=== PATIENT | female | born 1995 | race Caucasian/White ===

== ENCOUNTER 2021-08-19 07:00 | Inpatient (IN) ==
[2021-08-19] MEDS ORDERED: OXYTOCIN 30 UNITS/500 ML BAG IV PRN ×3 (07:31→14:28)
[2021-08-19] MEDS ORDERED: PENICILLIN G POTASSIUM 6 MU in DEXTROSE 5% 250 ML IV STA (07:31)
[2021-08-19] MEDS: LACTATED RINGER'S 1,000 ML IV PRN ×2 (07:37→09:02)
--- NOTE | 2021-08-19 07:38 | History & Physical Report ---
Date of Service August 19, 2021 Assessment & Plan (1) Active labor: Plan: 25 y/o at 40 4/7 wga presents in labor VSS Fetus cat 1 Labor - expectant management GBS+, pcn ordered desires epidural History of Present Illness Chief Complaint: contractions Primary Care Provider: NO PCP 25 y/o at 40 4/7 wga presents w/ ctx increasing in frequency and intensity w/ bloody show. +FM; denies LOF PNI: GBS+ Hx LGA Past [employer] Hx: G1 2014 at 40 wks G2 current q28-30d denies hx STIs 12/2020 neg cyto, denies hx abnl Allergies Allergy/AdvReac Type Severity Reaction Status Date / Time No Known Allergies Allergy Verified 08/19/21 07:37 Patient History Medical History No significant past medical history Surgical History H/O wisdom tooth extraction Family History Grandfather (Maternal) Myocardial infarction Grandfather (Paternal) Lung cancer Gestational diabetes Mother Thyroid disease Denies family history of Ovarian cancer Prostate cancer Breast cancer Colorectal cancer Social History Smoking Status: Never smoker Smoking End Date: positive preg test; Second Hand Exposure: No; Tobacco Cessation Education Requested by Patient: No Hx Alcohol Use: No Hx Substance Use: No Preferred Language: Hebrew Communication Ability: Effective Visual Impairment: No Limitations Hearing Ability: Normal Medical Cost Consultant Required: No Beliefs That Will Affect Care: None marital status: Single marital status details: Harvinder Barrientos (35) [phone] Current Living Situation: Family Current Living Situation Comment: lives with FOB and child. 2 dogs current occupational status: unemployed current occupation: Homemaker Other Information That Helps Us Care for You: No Feels Safe at Home: Yes Safety Concerns: Feels Safe At This Time Assistive Devices: None Physical Exam Genitourinary: Manual OB Exam: + cervical dilation 6 cm, + cervical effacement 70% and + station -2 OB Exam Monitor Tracing: + external FHT monitor used, + external uterine monitor used (3-6) and + category I (140/mod/+accel/-decel) bulging bag Results & Data ([facility]) Vital Signs (Past 12 Hours) Vital Signs Temp Pulse Resp BP 08/19/21 07:10 98.6 F 75 20 122/70 08/19/21 07:09 75 122/70 Laboratory Results OB Labs: Blood Type A Positive 01/10/21 Antibody Screen NEGATIVE 01/10/21 Hemoglobin 11.0 g/dL (12.0-16.0) L 05/26/21 Hematocrit 33.3 % (37-47) L 05/26/21 Mean Corpuscular Volume 90.5 fL (80-100) 01/10/21 Platelet Count 232 K/uL (130-400) 01/10/21 Rubella IgG Antibody Immune (Immune) 01/10/21 Rapid Plasma Reagin Nonreactive (Nonreactive) 01/10/21 Hepatitis B Surface Antigen Neg (Neg) 01/10/21 HIV (1&2) Ab and P24 Ag, 4th Gener Neg (Neg) 01/10/21 Glucose 1 Hour 50 gm Load 100 mg/dl (70-130) 05/26/21 OB Optional Labs: Chlamydia trachomatis RNA NOT DETECTED (NOT DETECTED) 01/10/21 Neisseria gonorrhoeae RNA NOT DETECTED (NOT DETECTED) 01/10/21 Labs Reviewed: Normal Quad screen Coding Level of Care Code None Diagnoses Active labor
[2021-08-19] MEDS ORDERED: ePHEDrine sulfate 50 MG/ML AMP ONE (07:58)
[2021-08-19] MEDS ORDERED: BUPIVACAINE 0.25% 30 ML VIAL ONE (07:58)
[2021-08-19] MEDS ORDERED: fentaNYL citrate 100 MCG/2 ML VIAL ONE (07:58)
[2021-08-19] MEDS ORDERED: SODIUM CHLORIDE 0.9% INJ 10 ML VIAL ONE (07:58)
[2021-08-19] MEDS ORDERED: fentaNYL 2MCG/ML ROPIVACAINE 1.25MG/ML 100 ML BAG EPI ONE (07:59)
[2021-08-19 08:23] LABS: Hematocrit (blood only) 32.4 % (37-47); Hemoglobin 10.3 g/dL (12.0-16.0); Mean Corpuscular Hemoglobin 27.4 pg (25-34); Mean Corpuscular Hgb Conc 31.8 g/dL (32-36); Mean Corpuscular Volume 86.2 fL (80-100); Mean Platelet Volume 11.1 fL (7.4-10.4); Platelet Count 197 K/uL (130-400); RDW Coefficient of Variation 14.8 % (11.5-14.5); RDW Standard Deviation 46.6 fL (36.4-46.3); Red Blood Count 3.76 M/uL (4.2-5.4); White Blood Count 13.15 K/uL (4.8-10.8)
--- NOTE | 2021-08-19 09:07 | Anesthesiology Consultation ---
Date of Service August 19, 2021 Assessment & Plan Chart Review Chart Review: Acceptable Risk for Labor Epidural Consults Requested none History Height/Weight Height: 5 ft 4 in Weight: 68.492 kg Allergies Allergy/AdvReac Type Severity Reaction Status Date / Time No Known Allergies Allergy Verified 08/19/21 07:37 Medications Active Medications Generic Name Dose Route Start Last Admin Trade Name Freq PRN Reason Stop Dose Admin Lactated Ringer's 1,000 mls @ 125 mls/hr 08/19/21 07:31 08/19/21 09:02 Lr IV 08/21/21 07:30 125 mls/hr .Q8H PRN Administration L&D Protocol Protocol Past Medical History Medical History No significant past medical history Past Family History Family History Grandfather (Maternal) Myocardial infarction Grandfather (Paternal) Lung cancer Gestational diabetes Mother Thyroid disease Denies family history of Ovarian cancer Prostate cancer Breast cancer Colorectal cancer Past Surgical History Surgical History H/O wisdom tooth extraction Social History Smoking Status: Never smoker tobacco type: cigarettes Smoking End Date: positive preg test Hx Alcohol Use: No Hx Substance Use: No substance use type: does not use Physical Exam Vital Signs Last Vital Signs Temp 37.0 C 08/19/21 07:10 Pulse 75 08/19/21 09:02 Resp 20 08/19/21 07:10 BP 108/58 L 08/19/21 09:02 Pulse Ox 100 08/19/21 09:01 Testing Laboratory Results 08/19/21 07:53
[2021-08-19] MEDS ORDERED: NALBUPHINE HCL INJ 10 MG/ML AMP IV PRN (09:09)
[2021-08-19] MEDS ORDERED: fentaNYL 2MCG/ML ROPIVACAINE 1.25MG/ML 100 ML BAG EPI PRN (09:09)
[2021-08-19] MEDS ORDERED: diphenhydrAMINE 50 MG/ML VIAL IV PRN (09:09)
[2021-08-19] MEDS ORDERED: NALOXONE HCL 0.4 MG/1 ML VIAL/CARP IV PRN (09:09)
[2021-08-19] MEDS ORDERED: NALOXONE HCL 1 MG in SODIUM CHLORIDE 0.9% 1000ML 1,000 ML IV PRN (09:09)
[2021-08-19] MEDS ORDERED: ePHEDrine sulfate 50 MG/ML AMP IV PRN (09:09)
[2021-08-19] MEDS ORDERED: PENICILLIN G POTASSIUM 3 MU in DEXTROSE 5% 100 ML IV PRN ×2 (10:31→12:20)
[2021-08-19] MEDS ORDERED: LACTATED RINGER'S 1,000 ML IV PRN (12:20)
[2021-08-19] MEDS ORDERED: METHYLERGONOVINE MALEATE 0.2 MG/ML AMP ONE (13:41)
[2021-08-19] MEDS ORDERED: miSOPROStoL 200 MCG TAB ONE (13:42)
[2021-08-19] MEDS ORDERED: METHYLERGONOVINE MALEATE 0.2 MG/ML AMP IM ONE (14:28)
[2021-08-19] MEDS ORDERED: ACETAMINOPHEN 325 MG TAB PO PRN (14:28)
[2021-08-19] MEDS ORDERED: HYDROCORTISONE ACETATE 25 MG SUPP PR PRN (14:28)
[2021-08-19] MEDS ORDERED: DIPHTHERIA/TETANUS/PERTUSSIS 0.5 ML SYR/VIAL IM ONE (14:28)
[2021-08-19] MEDS ORDERED: BENZOCAINE 20% AER SPR 82.5 GM CAN EXT PRN (14:28)
[2021-08-19] MEDS ORDERED: bisacodyL 10 MG SUPP PR PRN (14:28)
[2021-08-19] MEDS ORDERED: miSOPROStoL 200 MCG TAB PR ONE (14:28)
[2021-08-19] MEDS ORDERED: oxyCODONE/ACETAMINOPHEN 5mg/325mg TAB PO PRN (14:28)
[2021-08-19] MEDS: IBUPROFEN 600 MG TAB PO PRN (19:53)
[2021-08-19] MEDS: DOCUSATE SODIUM 100 MG CAP PO SCH (21:12)
[2021-08-20] MEDS: IBUPROFEN 600 MG TAB PO PRN ×3 (04:58→20:57)
--- NOTE | 2021-08-20 05:11 | Obstetrical Progress Note ---
Date of Service <Reji Valles MD - Last Filed: 08/20/21 06:59> August 20, 2021 Assessment & Plan <Reji Valles MD - Last Filed: 08/20/21 06:59> (1) Vaginal delivery: 25 yo now PPD1 from at 40wk4d -Discharge to home today, instructions reviewed with patient -Vitals reviewed- HDS, afebrile -GBS+, PCN given intrapartum -Hgb 9.1, asymptomatic -F/u in 6 weeks with OB <Ann El DO - Last Filed: 08/20/21 08:16> (1) Vaginal delivery: Subjective <Reji Valles MD - Last Filed: 08/20/21 06:59> Ambulation: ambulating normally Voiding: no voiding problems Passing Gas:: Yes Diet Tolerance:: regular diet Lochia:: Small Feeding Type:: breast feeding Current Pain Level(1-10): 3 Pt doing well overall, no acute complaints or distress. Pain well controlled with medication. Review of Systems Denies fever/chills. Denies dyspnea, cough. Denies chest pain. Denies breast pain or discharge. Denies dysuria. Denies headache. Denies back pain. Physical Exam <Reji Valles MD - Last Filed: 08/20/21 06:59> General: Alert, oriented, no acute distress Cardiac: Regular rate and rhythm, normal S1, S2. No murmurs appreciated. Respiratory: Clear to auscultation b/l with good air flow entry, symmetric chest rise and fall. No wheezes or crackles. No increased work of breathing or accessory muscle use Abdomen: Soft, nontender, nondistended. Fundus firm and palpable at 2 cm below umbilicus. No guarding or rebound. Skin: No rashes or lesions Extremities: Warm, dry, well-perfused with capillary refill <2s b/l. No lower extremity edema, erythema, swelling or calf tenderness b/l. Results & Data ([facility]) <Reji Valles MD - Last Filed: 08/20/21 06:59> Vital Signs (Past 12 Hours) Vital Signs Temp Pulse Pulse Resp BP BP Pulse Ox 08/20/21 04:00 36.4 C L 79 16 107/67 98 08/19/21 23:15 36.7 C 82 16 122/78 96 08/19/21 17:59 37.2 C 20 08/19/21 17:56 96 H 116/68 <Ann El DO - Last Filed: 08/20/21 08:16> Co-Signing Physician Notes Resident Physician Supervision Note: I interviewed and examined the patient. Discussed with Dr. Valles and agree with findings and plan as documented in the note. Any exceptions or clarifications are listed here: PPD#1 doing well. Routine care. Might decide to go home later today if baby is discharged . Reviewed instructions, followup office 6w. Documented By: Ann El DO Resident Activity Tracking <Reji Valles MD - Last Filed: 08/20/21 06:59> Resident Involvement: Resident Care Provided Care Provided: OB Delivery
[2021-08-20 06:52] LABS: Hematocrit (blood only) 28.3 % (37-47); Hemoglobin 9.1 g/dL (12.0-16.0); Mean Corpuscular Hemoglobin 27.6 pg (25-34); Mean Corpuscular Hgb Conc 32.2 g/dL (32-36); Mean Corpuscular Volume 85.8 fL (80-100); Mean Platelet Volume 10.6 fL (7.4-10.4); Platelet Count 148 K/uL (130-400); RDW Coefficient of Variation 14.6 % (11.5-14.5); RDW Standard Deviation 45.6 fL (36.4-46.3); White Blood Count 11.74 K/uL (4.8-10.8)
[2021-08-20] MEDS: PRENATAL VITAMIN 1 TAB PO SCH (09:13)
[2021-08-20] MEDS: DOCUSATE SODIUM 100 MG CAP PO SCH ×2 (09:13→20:57)
--- NOTE | 2021-08-20 16:25 | Delivery Summary ---
DATE OF PROCEDURE: 08/19/2021 PROCEDURE: Normal spontaneous vaginal delivery. First-degree perineal laceration repair. SURGEON: Gilberto Orozco MD. PREOPERATIVE DIAGNOSES: 1. Single intrauterine at 40 weeks 4 days gestational age. 2. Spontaneous active labor. 3. GBS positive. POSTOPERATIVE DIAGNOSES: 1. Single intrauterine at 40 weeks 4 days gestational age. 2. Spontaneous active labor. 3. GBS positive. 4. Status post procedure. ESTIMATED BLOOD LOSS: 300 mL. DRAINS: None. FLUIDS: Continuous lactated Ringer. URINE OUTPUT: Not measured. COMPLICATIONS: None. FINDINGS: Viable female with weight of 1 pound 2 ounces and Apgars of 8 and 10 at one and fiv e minutes respectively. DESCRIPTION OF PROCEDURE: The patient progressed to 10 cm dilated, 100% effaced, positive 2 station, pushed over intact perineum over 2-3 contractions to achieve delivery, had the delivered in GUEVARA position, restituted right transverse. No nuchal cord noted. Body and shoulders quickly followe d. was noted to be vigorous soon after delivery and 1 minute delayed cord clamping was initi ated. Cord was then double clamped and cut. remained on maternal abdomen. Cord blood was o btained. Attention was then turned to delivery of the placenta, which was delivered intact, 3-vessel cord, gentle cord traction. On inspection of the perineum, vagina, cervix, there was noted to be fi rst-degree perineal laceration, which was repaired with 3-0 Vicryl in continuous running locked stitc h. Needle, sponge, and instrument counts were correct at the completion of the case. Both mother an d stable in the immediate post-delivery period. Job ID: [id number]
[2021-08-20] MEDS ORDERED: bisacodyL 5 MG TABEC PO SCH (20:00)
--- NOTE | 2021-08-21 05:43 | Obstetrical Progress Note ---
Date of Service <Reji Valles MD - Last Filed: 08/21/21 07:46> August 21, 2021 Assessment & Plan <Reji Valles MD - Last Filed: 08/21/21 07:46> (1) Vaginal delivery: 25 yo now PPD2 from at 40wk4d -Discharge to home today, instructions reviewed with patient -Psychiatry consulted 08/20 for concerns regarding affect and possible depression -No acute safety risk -Pt was provided with resources for couples counseling as requested -Pt felt safe with discharge home -Vitals reviewed- HDS, afebrile -GBS+, PCN given intrapartum -Hgb 9.1, stable and asymptomatic -F/u in 6 weeks with OB <Gilberto Orozco MD - Last Filed: 08/21/21 08:15> (1) Vaginal delivery: Subjective <Reji Valles MD - Last Filed: 08/21/21 07:46> Ambulation: ambulating normally Voiding: no voiding problems Passing Gas:: Yes Diet Tolerance:: regular diet Lochia:: Small Feeding Type:: breast feeding Current Pain Level(1-10): 3 Pt doing well overall, no acute complaints or distress. Pain well controlled with medication. Review of Systems Denies fever/chills. Denies dyspnea, cough. Denies chest pain. Denies breast pain or discharge. Denies dysuria. Denies headache. Denies back pain. Physical Exam <Reji Valles MD - Last Filed: 08/21/21 07:46> General: Alert, oriented, no acute distress Cardiac: Regular rate and rhythm, normal S1, S2. No murmurs appreciated. Respiratory: Clear to auscultation b/l with good air flow entry, symmetric chest rise and fall. No wheezes or crackles. No increased work of breathing or accessory muscle use Abdomen: Soft, nontender, nondistended. Fundus firm and palpable at 2 cm below umbilicus. No guarding or rebound. Skin: No rashes or lesions Extremities: Warm, dry, well-perfused with capillary refill <2s b/l. No lower extremity edema, erythema, swelling or calf tenderness b/l Psych: blunted affect, normal mood Results & Data ([facility]) <Reji Valles MD - Last Filed: 08/21/21 07:46> Vital Signs (Past 12 Hours) Vital Signs Temp Pulse Resp BP Pulse Ox 08/21/21 03:40 36.8 C 70 20 92/50 L 08/21/21 00:20 36.9 C 87 16 121/81 97 <Gilberto Orozco MD - Last Filed: 08/21/21 08:15> Co-Signing Physician Notes Patient seen and evaluated with resident and agree with the above findings and plan. Seen by Psychiatry and cleared for discharge. Doing well. Stable for discharge. Resident Activity Tracking <Reji Valles MD - Last Filed: 08/21/21 07:46> Resident Involvement: Resident Care Provided Care Provided: OB Delivery
[2021-08-21 06:48] LABS: Hemoglobin 9.1 g/dL (12.0-16.0)
[2021-08-21] MEDS: PRENATAL VITAMIN 1 TAB PO SCH (08:05)
[2021-08-21] MEDS: DOCUSATE SODIUM 100 MG CAP PO SCH (08:05)
[2021-08-21] MEDS: IBUPROFEN 600 MG TAB PO PRN (08:05)
--- NOTE | 2021-08-21 10:34 | Psychiatric Consultation ---
Date of Consultation August 21, 2021 Impression / Recommendations Impression 25 yo woman s/p uncomplicated vaginal delivery with some stressors related to adjusting to co-parenting with her significant other and child at home with behavioral dysregulation but coping well overall with no significant mood symptoms, no SI and future-oriented with high resiliency and good insight. May have some post- blues vs normal reaction to decreased sleep. Low acute risk of harm to self as she denies SI and denies any symptoms of depression or anxiety. Safe for discharge from psychiatric standpoint. She was provided with resources for mental health services in the community and resources for couples therapy should stressors worsen or not improve which she feels comfortable reaching out to if needed in the future. (1) Vaginal delivery: (2) Tearfulness: -Safe for discharge from psychiatric standpoint -Reviewed community resources, warning signs for post- depression and treatment options she could discuss with her PCP or OB should this occur in the future. Risk Factors Assessment : Yes Do You Have Access To A Gun?: No Health Problems: No Mental Health Diagnoses: No Substance Use Disorders: No Previous Attempt: No Previous Psychiatric Hospitalization: No Hopelessness: No Protective Factors Assessment Responsible for Young Children: Yes Stable Relationships: Yes Supportive Family: Yes Psych History Identifying Data 25 yo woman admitted to OB for uncomplicated vaginal delivery of a baby girl. Psychiatry consult for concerns for mood changes/post- depression. Chief Complaint "I'm really happy to have her here finally, my mood just gets more irritable when I don't sleep as much and I'm more emotional right now but I'm happy". History of Present Illness Nalini had presented with flat affect at times and tearfulness after delivery prompting concern for possible post- depression. She was seen by psych liason RNs yesterday and provided with resources and denied depressed mood, denied SI and discussed biggest stressor as adapting to co-parenting with her significant other. She was appreciative of resources for couples therapists and other local area resources. Today she and her significant other, Harvinder, are watching the video on shaken baby syndrome. She is tearful noting that seeing the babies harmed is upsetting. She is breast feeding her daughter and attentive to her throughout our conversation. Harvinder leaves the room when asked to allow for privacy for our discussion. She states she is very happy to have her daughter and enjoyed the stage with her now 6 year old too. She feels Harvinder is a good support but notes he tends to avoid when stressed and he seems a bit overwhelmed by being a new father as his last child was born 13 years ago so he hasn't been around an infant in awhile. Yesterday she was frustrated with him because he wasn't being as supportive as she would have hoped but she feels they have a good and healthy relationship and that he treats her well. She notes she has always been irritable and more emotional when she doesn't sleep as well as she thinks this is likely contributi ng to some of her tearfulness and irritability towards him but also just from all the hormone changes with delivery. Reviewed that she had no history of post- depression with her 6 year old and feels she is attentive to her mental health and would seek support if she notices any changes. Reviewed signs of post- depression including lack of interest, not feeling attached to her baby, not feeling able to connect with her baby. She denies any current symptoms and in fact notes she is excited about no longer being as soon she can start exercising again which helps her cope with stress. Denies any SI and no history of SI nor prior attempts. She noted biggest stressor is Harvinder's 13 yo son who has ODD and needs a lot of supervision. Reviewed potential community resources such as family based supports they could look into if she decides they need more support with having a now also at home. She feels the 13yo is currently well connected with pediatric resources. She is looking forward to going home later today. Past Psychiatric History Do You Have Access To A Gun?: No Allergies Allergy/AdvReac Type Severity Reaction Status Date / Time No Known Allergies Allergy Verified 08/19/21 07:37 Personal History Living Arrangements: Home Marital Status: Living w/ Signif. Other Number Of Children: 2 , partner's 13 yo also lives in the home Beliefs That Will Affect Care: None Patient History Medical History No significant past medical history Surgical History H/O wisdom tooth extraction Family History Grandfather (Maternal) Myocardial infarction Grandfather (Paternal) Lung cancer Gestational diabetes Mother Thyroid disease Denies family history of Ovarian cancer Prostate cancer Breast cancer Colorectal cancer Social History Smoking Status: Never smoker Second Hand Exposure: No; Hx Alcohol Use: No Hx Substance Use: No Preferred Language: Cymraes Communication Ability: Effective Visual Impairment: No Limitations Hearing Ability: Normal Plaster Caster Required: No Beliefs That Will Affect Care: None marital status: Single marital status details: Harvinder Barrientos (35) [phone] Current Living Situation: Family Current Living Situation Comment: lives with FOB and child. 2 dogs current occupational status: unemployed current occupation: Homemaker Feels Safe at Home: Yes Assistive Devices: None Physical Exam Psychiatric: Orientation: alert and oriented x 3 Apperance: appropriately dressed and appropriately groomed Eye Contact: good eye contact Motor Behavior: no abnormal motor movements Speech: normal rate/rhythm/volume of speech Affect: euthymic affect (smiling later) and + tearful affect Mood: no depressed mood and no anxious mood Thought Process: goal directed thought process Thought Content: reality based without delusions Suicidal Thoughts: denies suicidal thoughts Homicidal Thoughts: denies homicidal thoughts Hallucinations: no auditory hallucinations and no visual hallucinations Cognition: recent memory grossly intact, remote memory grossly intact, attention grossly intact and language grossly intact Estimated Intelligence: consistent with education level Insight: good insight Judgement: + fair judgement Vital Signs (Past 24 Hours): Last Vital Signs Temp 37.1 C 08/21/21 08:55 Pulse 79 08/21/21 08:55 Resp 20 08/21/21 08:55 BP 107/68 08/21/21 08:55 Pulse Ox 96 08/21/21 08:55 Review of Systems All systems reviewed & are unremarkable except as noted in HPI & below Results & Data ([facility]) Medications Administered Docusate Sodium (Docusate Sodium 100 Mg Cap) 100 mg PO DAILY@08,21 WINNIE Stop: 09/18/21 20:59 Last Admin: 08/21/21 08:05 Dose: 100 mg Documented by: [id number] Admin: 08/20/21 20:57 Dose: 100 mg Documented by: [id number] Admin: 08/20/21 09:13 Dose: 100 mg Documented by: [id number] Admin: 08/19/21 21:12 Dose: 100 mg Documented by: [id number] Ibuprofen (Ibuprofen 600 Mg Tab) 600 mg PO Q4H PRN PRN Reason: Pain/SCHWARZ/Cramping/Fever Stop: 09/18/21 14:27 Last Admin: 08/21/21 08:05 Dose: 600 mg Documented by: [id number] Admin: 08/20/21 20:57 Dose: 600 mg Documented by: [id number] Admin: 08/20/21 13:56 Dose: 600 mg Documented by: [id number] Admin: 08/20/21 04:58 Dose: 600 mg Documented by: [id number] Admin: 08/19/21 19:53 Dose: 600 mg Documented by: [id number] Prenat Multivit/Sammy Martinez/Iron/Folic Ac ( Vitamin 1 Tab) 1 tab PO DAILY@08 WINNIE Stop: 09/19/21 07:59 Last Admin: 08/21/21 08:05 Dose: 1 tab Documented by: [id number] Admin: 08/20/21 09:13 Dose: 1 tab Documented by: [id number] Coding Level of Care Code 78487 Inpt Consult Level 3 Diagnoses Vaginal delivery O80 Tearfulness R45.89
== END 2021-08-21 11:45 | disposition home or self-care (01) | DRG 807 ==
LOC: OPB 07:00 → 4S1 07:05 → 4E2 18:31